=== PATIENT | male | born 1965 | race Two or more races ===

== ENCOUNTER → 2018-05-29 | Outpatient (CLI) | END | disposition home or self-care (01) ==

== ENCOUNTER 2018-08-14 08:50 | Day surgery (SDC) | payer OTHER ==
[~2018-08-14] VITALS: Ht 170.2 cm; Wt 114.4 kg
[~2018-08-14 08:50] MED LIST: prilosec PO
[2018-08-14 09:46] VITALS: Ht 170.2 cm; Wt 114.4 kg
[2018-08-14] MEDS ORDERED: OMEP40CA6 PO (09:56)
[2018-08-14] MEDS ORDERED: SIMV5TAB14 PO (09:56)
[2018-08-14] MEDS ORDERED: LISI-471 PO (09:56)
[2018-08-14 11:07] VITALS: BP 133/79; PULSE 65; RESP 16
[2018-08-14] MEDS ORDERED: DIPHENHYDRAMINE 50 MG INJ ONE (11:19)
[2018-08-14] MEDS ORDERED: FENTAnyl 50 MCG/ML VIAL ONE (11:35)
[2018-08-14] MEDS ORDERED: MIDAZOLAM 1 MG/ML 2 ML INJ ONE ×3 (11:35)
== END 2018-08-14 13:20 | disposition home or self-care (01) ==
LOC: GIL 08:50
PROVIDERS: ATTEND Internal Medicine Gastroenterology
DX: Z12.11 Encounter for screening for malignant neoplasm of colon (principal)
CPT/HCPCS: 45378; J1200; J2250; J3010; Z7610

== ENCOUNTER 2019-04-04 12:35 | Day surgery (SDC) | payer OTHER ==
[~2019-04-04] VITALS: Ht 170.2 cm; Wt 113.5 kg
[~2019-04-04 12:35] MED LIST changes: +LISI-471 PO; +OMEP40CA6 PO; +SIMV5TAB14 PO; -prilosec PO
[2019-04-04 13:15] VITALS: Ht 170.2 cm; Wt 113.5 kg
[2019-04-04 13:33] VITALS: BP 142/94; PULSE 77; RESP 16
[2019-04-04] MEDS ORDERED: LIDOCAINE 2% (SDV) 5 ML INJ ONE (14:51)
[2019-04-04] MEDS ORDERED: MIDAZOLAM 1 MG/ML 2 ML INJ ONE (14:51)
[2019-04-04] MEDS ORDERED: PROPOFOL 20 ML ONE ×3 (14:51)
[2019-04-04] MEDS ORDERED: LIDOCAINE 4% SOLUTION 50 ML BTL ONE (14:51)
[2019-04-04] MEDS ORDERED: FENTAnyl 50 MCG/ML VIAL ONE (14:51)
[2019-04-04 15:36] VITALS: BP 128/82; RESP 22
== END 2019-04-04 15:29 | disposition home or self-care (01) ==
LOC: GIL 12:35
PROVIDERS: ATTEND Internal Medicine Gastroenterology
DX: K31.7 Polyp of stomach and duodenum (principal); K29.30 Chronic superficial gastritis without bleeding; I10 Essential (primary) hypertension; J45.909 Unspecified asthma, uncomplicated
CPT/HCPCS: 43239; 88305; 88312; J2250; J3010; Z7610